=== PATIENT | male | born 1985 | race Two or more races ===

== ENCOUNTER 2019-04-18 23:11 | Emergency (ER) | payer MEDICAID ==
[~2019-04-18] VITALS: Ht 182.9 cm; Wt 108.9 kg
[~2019-04-18 23:11] MED LIST: DIVA500T53 PO; OLAN15TA19 PO; QUET400T3 PO; SERT-274 PO
[2019-04-19 02:42] LABS: Basophils # (auto) 0.1 uL; Basophils % (auto) 0.7 % (0.0-2.0); Eosinophils # (auto) 0.2 uL; Eosinophils % (auto) 0.8 % (0.0-7.0); Hematocrit 41.7 % (41.0-53.0); Hemoglobin 14.2 g/dL (13.5-17.5); Lymphocytes # (auto) 1.2 uL; Lymphocytes % (auto) 5.7 % (10.0-50.0); Mean Corpuscular Hemoglobin 28.8 pg (28.0-32.0); Mean Corpuscular Hgb Conc. 33.9 g/dL (32.0-36.0); Mean Corpuscular Volume 84.8 fL (80.0-100.0); Monocytes # (auto) 1.8 uL; Monocytes % (auto) 8.5 % (0.0-12.0); Neutrophils # (auto) 17.6 uL; Neutrophils % (auto) 84.3 % (37.0-80.0); Platelet Count (auto) 213 10^3/uL (140-450); Red Blood Cells 4.92 10^6/uL (4.5-5.90); White Blood Cell 20.8 10^3/uL (4.4-10.8)
[2019-04-19 02:59] LABS: Albumin 3.2 g/dL (3.4-5.0); Calcium 9.6 mg/dL (8.5-10.1); Potassium 4.3 mmol/L (3.5-5.1)
[2019-04-19 03:01] LABS: BUN/Creatinine Ratio 17.3; Bilirubin, Total 0.3 mg/dL (0.2-1.0); Total Protein 8.8 g/dL (6.4-8.2)
[2019-04-19] MEDS ORDERED: cefTRIAXone SOD 1,000 MG VL IM ONE (07:00)
[2019-04-19] MEDS ORDERED: DOXYCYCLINE 100 MG TAB/CAP PO ONE (08:15)
[2019-04-19 08:55] VITALS: BP 120/67
== END 2019-04-19 09:16 | disposition home or self-care (01) ==
LOC: ER 23:12
DX: N45.1 Epididymitis (principal); Z79.899 Other long term (current) drug therapy
CPT/HCPCS: 36415; 76870; 80053; 85025; 96372; 99284; J0696